=== PATIENT | male | born 1965 | race African-American/Black ===

== ENCOUNTER 2025-03-20 01:16 | Emergency (ER) | payer MEDICAID ==
[~2025-03-20] VITALS: Ht 172.7 cm; Wt 107.0 kg
[2025-03-20 01:23] VITALS: O2SAT 97
[2025-03-20 01:48] VITALS: BP 139/87; PULSE 67; RESP 18; TEMP 36.9; O2SAT 97
[2025-03-20 05:10] LABS: BASOPHILS % 0.3 % (0.0-2.0); EOSINOPHILS % 4.4 % (0.0-5.0); HEMATOCRIT. 41.1 % (42.0-52.0); HEMOGLOBIN. 13.8 g/dL (14.0-18.0); LYMPHOCYTES % 24.3 % (20.0-50.0); MEAN CORPUSCULAR HEMOGLOBIN 31.4 pg (28.0-32.0); MEAN CORPUSCULAR HGB CONC 33.5 g/dL (31.0-37.0); MEAN CORPUSCULAR VOLUME 93.9 fL (80.0-94.0); MEAN PLATELET VOLUME 7.2 fl (7.4-10.4); MONOCYTES % 10.8 % (2.0-8.0); NEUTROPHILS % 60.2 % (40.0-76.0); PLATELET 247 x1000/uL (130-400); RED BLOOD CELL COUNT 4.38 mill/uL (4.7-6.1); RED CELL DISTRIBUTION WIDTH 12.9 % (11.6-14.6); WHITE BLOOD COUNT 5.2 x1000/uL (4.5-11.0)
[2025-03-20 05:39] LABS: SODIUM 140 mEq/L (136-145)
[2025-03-20 05:40] LABS: CARBON DIOXIDE 30 mEq/L (21-32); CHLORIDE 105 mEq/L (98-107); GLUCOSE 130 mg/dL (70-105); POTASSIUM 4.2 mEq/L (3.5-5.1); UREA NITROGEN BLOOD 12 mg/dL (9-23)
[2025-03-20 05:41] LABS: CALCIUM 10.1 mg/dL (8.7-10.4)
== END 2025-03-20 05:58 | disposition home or self-care (01) ==
LOC: ER 01:16
DX: H40.2220 Chronic angle-closure glaucoma, left eye, stage unspecified (principal); E78.00 Pure hypercholesterolemia, unspecified; I10 Essential (primary) hypertension; Z86.73 Personal history of transient ischemic attack (TIA), and cerebral infarction without residual deficits
CPT/HCPCS: 36415; 70480; 80048; 85025; 99284